=== PATIENT | female | born 1990 | race Caucasian/White ===

== ENCOUNTER 2018-01-27 06:44 | Emergency (ER) | payer OTHER ==
[2018-01-27] MEDS ORDERED: KETOROLAC TROMETHAMINE 30 MG/1ML VIAL ONE (07:25)
[2018-01-27] MEDS ORDERED: 0.9 % SODIUM CHLORIDE 1,000 ML IV ONE ×3 (07:26→08:23)
[2018-01-27] MEDS ORDERED: ONDANSETRON HCL/PF 4 MG/ 2ML VIAL IVP ONE (07:26)
[2018-01-27] MEDS ORDERED: KETOROLAC TROMETHAMINE 30 MG/1ML VIAL IVP ONE (07:26)
[2018-01-27] MEDS ORDERED: ONDANSETRON HCL/PF 4 MG/ 2ML VIAL ONE (07:26)
[2018-01-27] MEDS ORDERED: 0.9 % SODIUM CHLORIDE 1,000 ML IV SCH (07:30)
[2018-01-27 07:39] LABS: BASOPHILS % 0.4 (0.0-1.5); EOSINOPHILS % 1.5 % (0.0-6.8); MEAN CORPUSCULAR HEMOGLOBIN 30.2 pg (28.0-34.0); MEAN CORPUSCULAR VOLUME 90.2 fl (80.0-100.0); MONOCYTES % 5.5 % (0.0-11.0)
[2018-01-27 07:52] LABS: eGFR (African) > 60; eGFR (Non-African) > 60
--- NOTE | 2018-01-27 08:12 | Diagnostic Imaging Report ---
TERELL ASHBY [facility] [place] [facility] [address] [facility] [address] [place], [place]. [address] Report Submission Date: Jan 27, 2018 8:03:58 AM CDT Patient Study Name: CHLOÉ BURROUGHS Date: Jan 27, 2018 7:40:39 AM CDT Modality Type: CT\SR Gender: F Description: CT ABD PELVIS W/O CO : 91 Institution: [facility] Physician: TERELL ASHBY Computed tomography abdomen pelvis without contrast History: Right flank pain, hematuria, fever, nausea, vomiting Findings: Transverse abdomen and pelvis sections are obtained without contrast. No comparisons are available. The spleen is borderline enlarged. A 2 mm right lower pole renal stone is present. Moderate right perinephric stranding is observed without significant hydroureteronephrosis. The adrenals, left kidney, pancreas, mesenteric structures, liver, gallbladder, and bowel loops are unremarkable. Disc bulging is present at L3-4, L4-5, and L5-S1. Pelvic sections reveal an intrauterine device and multiple phleboliths. There is no definite ureteral or bladder stone. The urinary bladder is incompletely distended and contains a single air bubble. There is no uterine or adnexal mass. Pelvic bowel loops are unremarkable including a normal appendix. Impression: 1. Moderate right perinephric stranding. Differential includes recent stone passage versus pyelonephritis. 2. 2 mm right lower pole renal stone. 3. Intrauterine device. 4. Multilevel lumbar spondylosis. 5. Normal appendix. Electronically signed on Jan 27, 2018 8:03:58 AM CDT by: Js PERRY
[2018-01-27] MEDS ORDERED: HYDROmorphone HCL/PF 1 MG/ML DISP.SYRIN IVP ONE (08:22)
[2018-01-27] MEDS ORDERED: CIPROFLOXACIN/D5W 400 MG in PREMIX BAG 1 BAG IV ONE (08:22)
[2018-01-27] MEDS ORDERED: CIPROFLOXACIN/D5W 200 ML IV ONE (08:23)
[2018-01-27] MEDS ORDERED: HYDROmorphone HCL/PF 2 MG/ML DISP.SYRIN ONE (08:23)
[2018-01-27] MEDS ORDERED: TAMSULOSIN HCL 0.4 MG CAP.ER.24H PO ONE ×2 (08:23)
[2018-01-27] MEDS ORDERED: ACETAMINOPHEN 325 MG TABLET ONE (08:25)
[2018-01-27] MEDS ORDERED: ACETAMINOPHEN 325 MG TABLET PO ONE (08:38)
[2018-01-27 09:56] VITALS: BP 114/72
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
[2018-01-28 07:12] LABS: OCCULT BLOOD,URINE 2+ (NEGATIVE)
== END 2018-01-27 09:53 | disposition home or self-care (01) ==
LOC: ED 06:44
DX: N10 Acute pyelonephritis (principal); N20.0 Calculus of kidney
CPT/HCPCS: 74176; 80053; 85025; J0744; J1170; J1885; J2405; J7030; 81002; 81025; 96365; 96366; 96368; 96375; 99284; S1016

== ENCOUNTER 2018-01-31 15:27 | Outpatient (CLI) | payer OTHER ==
[2018-01-31 16:47] LABS: eGFR (African) > 60; eGFR (Non-African) > 60
== END 2018-01-31 15:30 ==
LOC: LAB 15:27
PROVIDERS: ATTEND Physician Assistant
DX: N20.0 Calculus of kidney (principal)
CPT/HCPCS: 36415; 80053

== ENCOUNTER 2018-04-04 18:04 | Emergency (ER) | payer OTHER ==
[2018-04-04] MEDS: KETOROLAC TROMETHAMINE 60 MG/2 ML VIAL IM ONE (18:36)
[2018-04-04 18:50] VITALS: BP 112/70
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
== END 2018-04-04 18:48 | disposition home or self-care (01) ==
LOC: ED 18:04
DX: S39.012A Strain of muscle, fascia and tendon of lower back, initial encounter (principal); X58.XXXA Exposure to other specified factors, initial encounter; Y92.9 Unspecified place or not applicable; Y93.9 Activity, unspecified; Y99.9 Unspecified external cause status
CPT/HCPCS: 96372; 99283; J1885

== ENCOUNTER 2018-08-13 17:34 | Emergency (ER) | payer OTHER ==
[2018-08-13] MEDS ORDERED: LIDOCAINE HCL 2% VISC. ORAL 300MG/15ML UDC PO ONE (17:41)
--- NOTE | 2018-08-13 17:41 | ED Physician Documentation ---
Sore Throat/Dental Pain - HPI Stated Complaint: dental pain Chief Complaint: Dental Pain Additional Information: Patient presents with a 2 week history of left lower dental pain. Patient states the filling in the tooth fell out about a year ago. She was unable to sleep last night due to the pain. Denies fever. Context: Fractured Tooth Associated Symptoms: denies: fever, sore throat - ROS CONST: denies: no problems CVS/RESP: denies: chest pain, shortness of breath GI/: denies: nausea, vomiting MS/SKIN/LYMPH: denies: rash NEURO/PSYCH: denies: headache - PAST HX Past History: none Other History: none Allergies/Adverse Reactions: Allergies Allergy/AdvReac Type Severity Reaction Status Date / Time No Known Allergies Allergy Verified 04/04/18 18:18 Home Medications: Ambulatory Orders Medication Instructions Recorded Cyclobenzaprine HCl [Flexeril] 10 mg PO HS #10 tablet 04/04/18 traMADol HCL [Ultram] 50 mg PO Q4H PRN #18 tablet 04/04/18 Penicillin V Potassium [Pen V K] 500 mg PO TID #30 tablet 08/13/18 - SOCIAL HX Smoking History: non-smoker Alcohol Use: none Drug Use: none - FAMILY HX Family History: No - VITAL SIGNS Vital Signs: Vital Signs Temp Pulse Resp BP Pulse Ox 112/70 04/04/18 18:48 - REVIEWED ASSESSMENTS Nursing Assessment Reviewed: Yes Vitals Reviewed: Yes Dental Pain Physical Exam - EXAM General Appearance: alert Head/Neck: head nml inspection. No: mandibular swelling (L), cervical lymphadenopathy Eyes: PERRL Mouth/Throat: pharynx nml, voice nml Respiratory: no resp. distress, breath sounds nml. No: respiratory distress, stridor CVS: reg. rate & rhythm, heart sounds nml Abdomen: soft Extremities: non-tender Skin: warm/dry, normal color Neuro/Psych: none Discharge Clincal Impression: Pain due to dental caries Prescriptions: Penicillin V Potassium [Pen V K] 500 mg PO TID #30 tablet Referrals: Primary Doctor,No [Primary Care Provider] - 2 Days Additional Instructions: 1. Tylenol and/or Ibuprofen as needed for pain. These may be taken together for better pain control 2. Apply dental balls to affected tooth every 4 hours as needed for pain 3. Follow up with a Dentist as soon as possible 4. Return to ER for new or worsening symptoms Condition: Stable Decision to Admit: NO Date of Decison to Admit: 08/13/18 Decision Time: 17:58
[2018-08-13] MEDS ORDERED: ACETAMINOPHEN ORAL SOLUTION 160 MG/5 ML CUP PO ONE (17:42)
[2018-08-13 17:43] VITALS: BP 141/87
== END 2018-08-13 18:04 ==
LOC: ED 17:34
DX: K02.9 Dental caries, unspecified (principal)
CPT/HCPCS: 99281; 99282